=== PATIENT | female | born 1930 | race Caucasian/White ===

== ENCOUNTER → 2018-07-16 | Outpatient (CLI) | payer OTHER | LOC: BHCLAF 15:15 | PROVIDERS: ATTEND Internal Medicine Cardiovascular Disease | DX: R55 Syncope and collapse (principal) | CPT/HCPCS: 93005-PO ==

== ENCOUNTER 2018-08-06 09:03 | Day surgery (SDC) | payer OTHER ==
[2018-08-06] MEDS ORDERED: LIDOCAINE 1% 300 MG/30 ML SDV SC ONE (09:11)
--- NOTE | 2018-08-06 09:41 | PDHPUP ---
History & Physical Update H&P update statement: This history and physical update is based on an assessment of the patient which was completed after admission or registration (within 24 hours), but prior to the surgery/procedure. H&P update: H&P reviewed & patient examined, no change in patient's condition since H&P completed H&P changes: Syncopal event has been noted, and senior care monitoring to be placed (Confirm monitor).
--- NOTE | 2018-08-06 10:28 | SUROPNOTE ---
[facility] Operative Report - Surgery PROCEDURE: Confirm implant INDICATION: Syncope Procedure details: After consent was obtained, with patient was prepped and draped in the usual sterile fashion. Lidocaine (1%) was used to the left 2nd and 3rd intercostal spaces. An incision was made with #12 blade, and the provide blade was then used for proper width and breath. The device delivery rail was then placed in the incision at a 45 degree angle to the collar bone, and the device was easily inserted. CONFIRM Rx: SN: [id number] Three teja were used to close the pocket. No complications were appreciated. Teaching by Abbot taylor was performed with both the patient and the daughter. Follow up with cardiology in one week
== END 2018-08-06 10:53 | disposition home or self-care (01) ==
LOC: FCATH 09:03
PROVIDERS: ATTEND Internal Medicine Cardiovascular Disease
PROC: 0JH602Z Insertion of Monitoring Device into Chest Subcutaneous Tissue and Fascia, Open Approach (ICD-10-PCS; principal; 2018-08-06)
DX: R55 Syncope and collapse (principal); I67.2 Cerebral atherosclerosis; I25.10 Atherosclerotic heart disease of native coronary artery without angina pectoris; I10 Essential (primary) hypertension; E78.5 Hyperlipidemia, unspecified; I25.2 Old myocardial infarction; Z95.1 Presence of aortocoronary bypass graft
CPT/HCPCS: C1764